=== PATIENT | male | born 1950 | race Caucasian/White ===

== ENCOUNTER 2019-01-05 19:11 | Emergency (ER) | payer MEDICARE, SELFPAY ==
[2019-01-05] VITALS (43 sets, daily range): BP systolic 72–232; BP diastolic 49–125; PULSE 46–107; RESP 12–26; TEMP 33.5–35.6; O2SAT 89–100
--- NOTE | 2019-01-05 19:20 | DI.RAD_ITS ---
SYMPTOMS/DIAGNOSIS: S/P CARDIAC ARREST, H/O LEFT LOBECTOMY PORTABLE CHEST: There are no prior comparison exams. A report from a 2006 exam is available, which noted opacification of the left hemithorax. An endotracheal tube has been inserted, which lies at the level of the clavicles. A nasogastric tube is seen projecting in the fundus of the stomach. There is opacification of the left hemithorax, which also shows calcification. There is a lead overlying the right upper lobe. A density is seen in the right hilar region, which likely represents overlying vasculature. Scoliosis as well as degenerative changes are seen. IMPRESSION: Chronic opacification of the left hemithorax. Satisfactory position of endotracheal tube. The nasogastric tube is projecting at the fundus of the stomach. The stomach does appear distended. Advancement of the tube should be considered. Probable confluence of shadows seen at the right hilar region.
--- NOTE | 2019-01-05 19:33 | W.ED.GENAD ---
Discharge Plan Disposition Patient Disposition: [facility] Condition: Critical Discharge Details Chief Complaint: CodeBlue Clinical Impression: Cardiopulmonary arrest Primary Care Provider: Clayton Arceo ED Provider: Perlita Hansen Discharge Data Discharge Date/Time-TO BE ENTERED AT DEPARTURE: 01/05/19 20:42 Medical Decision Making 1931 -- 68-year-old with history of hypothyroidism and asthma who presents in cardiopulmonary arrest. Able to obtain ROSC in field. Intubated in field. Arrived to the ED with heart rate 80s, blood pressure 158/98. O2 sat 94%. Vent settings rate of 20, tidal volume 250, O2 100, PEEP of 5. Pupils fixed and dilated. No breath sounds left chest, patient has history of left lung resection. Diminished breath sounds right chest. EKG notes a rate of 78 and left bundle branch block. No old EKG to compare. Bedside portable chest x-ray notes complete whiteout left chest consistent with left lung resection. No obvious pneumothorax. Patient had an episode of bradycardia with heart rate in the 30s and given a dose of atropine. Heart rate now 80s. Remainder vitals stable. 1944 -- discussed with [facility] critical care -accepts patient for transfer to the ED. Accepting physician Dr. Adiel Wagner. Recommends to decrease the respiratory rate and increase the tidal volume 8 to 10 mL/kg, but to monitor more closely with history of left lung resection to keep plateau pressures less than 25. 1999 -- patient now biting the tube and moving around. Push dose of 50 mg propofol given x2. Propofol drip started. Patient's blood pressure now decreased to systolic of 70s. We will give a liter IV fluids. Plan discussed with and family and she is agreeable with transfer. 2039 -- patient now appears to be spontaneously opening his eyes but with involuntary jerking movements. EMS here to take patient to [facility] at this time. BP 96/64. Medical Records Medical records reviewed: Yes I reviewed the patient's medical records. Imaging Data Radiologic Study: Radiologist's impression: XR Chest, 1 View EXAM DATE/TIME: 01/05/2019 7:22 PM CLINICAL HISTORY: 68 years old, male; Signs and symptoms; Other: S/P cardiac arrest, PT has had lt lobe lobectomy TECHNIQUE: Imaging protocol: XR of the chest, 1 view. COMPARISON: No relevant prior studies available. FINDINGS: Tubes, catheters and devices: Endotracheal tube is present with distal tip projecting approximately 5.8 cm above the allan. Enteric tube is present with radiolucent side port likely at the gastroesophageal junction. Defibrillator is in place. Lungs: Complete opacification of the left hemithorax is likely due to prior lobectomy as per provided clinical history. Rounded opacity projecting at the right hilum. Pleural space: No large right pleural effusion. Heart/Mediastinum: Unable to adequately assess due to complete opacification of the left hemithorax. Bones/joints: Serpentine curvature of the thoracic spine may be due to patient positioning. IMPRESSION: 1. Endotracheal tube with distal tip projecting 5.8 cm above the allan. 2. Enteric tube is present with the radiolucent side port likely at the expected location of the gastroesophageal junction. Consider advancing enteric tube approximately 4 cm. 3. Rounded opacity at the right hilum may be due to confluence of shadows. This can be further evaluated with dedicated PA and lateral chest radiographs. 4. Complete opacification of the left hemithorax is likely due to prior lobectomy as per provided clinical history. Lab Data Lab results reviewed: Yes I reviewed the patient's lab results. Laboratory Tests Range/Units 01/05/19 01/05/19 01/05/19 19:33 19:33 19:33 WBC (4.4-10.8) k/cumm RBC (4.50-6.00) m/cumm Hgb (13.5-17.5) g/dL Hct (40.0-50.0) % MCV (80-95) fL MCH (27.0-33.0) pg MCHC (32.0-36.0) g/dL RDW (11.8-14.1) % Plt Count (130-400) x1000/uL MPV (8.0-11.0) fL Immature Gran % Neutrophils % Band Neutrophils % % Lymphocytes % Atypical Lymphs % Monocytes % Eosinophils % Basophils % Metamyelocytes % % Absolute Neutrophils (1.2-6.7) k/cumm Absolute Lymphocytes (1.2-3.4) k/cumm Absolute Monocytes (0.11-0.7) k/cumm Absolute Eosinophils (0.0-0.7) k/cumm Absolute Basophils (0.0-0.2) k/cumm Differential Comment RBC Morphology PT (9.3-11.0) sec 10.1 INR (0.9-1.1) 1.0 APTT (21.0-31.4) sec 24.7 Sample Site pCO2 (34-47) mmHg pO2 (83-108) mmHg O2 Saturation (94-98) % ABG pH (7.35-7.45) ABG HCO3 ABG Total CO2 ABG Base Excess Oxygen Liter Flow L FiO2 % Sodium (136-145) mmol/L 140 Potassium (3.5-5.1) mmol/L 5.1 Chloride (98-107) mmol/L 104 Carbon Dioxide (21.0-32.0) mmol/L 23.4 Anion Gap (3-11) mmol/L 12.6 H BUN (7-18) mg/dL 19 H Creatinine (0.70-1.30) mg/dL 1.53 H Estimated GFR/1.73 m2 (mL/min/1.73m2) 45.22 Glucose (70-100) mg/dL 239 H Lactate (0.6-1.4) mmol/l 9.1 H Calcium (8.5-10.1) mg/dL 8.3 L Magnesium (1.8-2.4) mg/dL 2.3 Total Bilirubin (0.2-1.0) mg/dL 0.3 AST (15-37) U/L 189 H ALT (12-78) U/L 220 H Alkaline Phosphatase (46-116) U/L 94 Troponin I (0.00-0.06) ng/mL 0.03 Total Protein (6.4-8.2) g/dL 6.2 L Albumin (3.4-5.0) g/dL 2.8 L Range/Units 01/05/19 01/05/19 19:33 19:35 WBC (4.4-10.8) k/cumm 6.61 RBC (4.50-6.00) m/cumm 4.49 L Hgb (13.5-17.5) g/dL 13.8 Hct (40.0-50.0) % 43.1 MCV (80-95) fL 96.0 H MCH (27.0-33.0) pg 30.7 MCHC (32.0-36.0) g/dL 32.0 RDW (11.8-14.1) % 12.8 Plt Count (130-400) x1000/uL 167 MPV (8.0-11.0) fL 11.3 H Immature Gran % 0.0 Neutrophils % 38.0 Band Neutrophils % % 0.0 Lymphocytes % 53.0 Atypical Lymphs % 4 Monocytes % 4.0 Eosinophils % 0.0 Basophils % 0.0 Metamyelocytes % % 1.0 Absolute Neutrophils (1.2-6.7) k/cumm 2.51 Absolute Lymphocytes (1.2-3.4) k/cumm 3.77 H Absolute Monocytes (0.11-0.7) k/cumm 0.26 Absolute Eosinophils (0.0-0.7) k/cumm 0.00 Absolute Basophils (0.0-0.2) k/cumm 0.00 Differential Comment Manual differential RBC Morphology Normal PT (9.3-11.0) sec INR (0.9-1.1) APTT (21.0-31.4) sec Sample Site Right radial pCO2 (34-47) mmHg pO2 (83-108) mmHg 123 H O2 Saturation (94-98) % 95 ABG pH (7.35-7.45) 6.86 L* ABG HCO3 Not Applicable ABG Total CO2 Not Applicable ABG Base Excess Not Applicable Oxygen Liter Flow L Vent FiO2 % 100 Sodium (136-145) mmol/L Potassium (3.5-5.1) mmol/L Chloride (98-107) mmol/L Carbon Dioxide (21.0-32.0) mmol/L Anion Gap (3-11) mmol/L BUN (7-18) mg/dL Creatinine (0.70-1.30) mg/dL Estimated GFR/1.73 m2 (mL/min/1.73m2) Glucose (70-100) mg/dL Lactate (0.6-1.4) mmol/l Calcium (8.5-10.1) mg/dL Magnesium (1.8-2.4) mg/dL Total Bilirubin (0.2-1.0) mg/dL AST (15-37) U/L ALT (12-78) U/L Alkaline Phosphatase (46-116) U/L Troponin I (0.00-0.06) ng/mL Total Protein (6.4-8.2) g/dL Albumin (3.4-5.0) g/dL ECG Data Attestation: I personally reviewed and interpreted this ECG (s) as follows: Interpretation: Rate of 78, sinus. Left bundle branch block. QTc 476. QRS 136. HPI General Mode of arrival: EMS. Date/Time Provider Initiated Documentation: 01/05/19 19:20. Limitations to Documentation: altered mental status. Information obtained by: family and EMS. 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 EMS states they were called for a man who suddenly dropped down. Upon arrival, daughter was performing CPR. Patient was not breathing and pulseless. Patient was noted to be in asystole and given multiple rounds of epi. They were able to regain a pulse and he was started on a nor epi drip. He was intubated in the field. EMS states that patient had bradycardia just outside the emergency department on arrival and was given another dose of epi. states that patient has a history of stress-induced shortness of breath and states that he became stressed about something this evening and developed shortness of breath and when she was attempting to get his nebulizer machine, he suddenly dropped down to the ground. She states his daughter who is a nurse started performing CPR. Related Data Allergies Allergy/AdvReac Type Severity Reaction Status Date / Time pollen extracts Allergy Unverified 01/05/19 20:17 Review of Systems Review of Systems Unobtainable due to mental status [facility] Medical History Asthma (Chronic) Hypothyroidism (Chronic) Surgical History Status post pneumonectomy (Acute) Social History Smoking/Tobacco Use Status: Former Tobacco Use Exam Const Orientation: other (unresponsive) [facility] Head: other (skin mottled) Eyes Pupils: dilated bilaterally and fixed bilaterally Neck Neck: normal visual inspection and No submandibular swelling Lymphatic: no lymphadenopathy noted Chest Chest: normal inspection of the chest Resp Effort & Inspection: other (diminshed breath sounds R chest,no breath sounds L chest 2/2 lung resection) Cardio Rate: regular rate Rhythm: regular rhythm GI Inspection: obesity Palpation: soft, not firm, not rigid and nontender Skin General skin exam: no rashes or lesions noted Neuro General: other (unresponsive) Extrem General: no edema Other: 2+ pitting edema bilateral lower extremities. Critical Care Time Total Critical Care Time: 40 Attestation: minutes
[2019-01-05 19:40] LABS: pO2 123 mmHg (83-108); sO2 95 % (94-98)
[2019-01-05 19:42] LABS: Abs Immature Grans 0.19 k/cumm (0.0-0.09); HCT 43.1 % (40.0-50.0); HGB 13.8 g/dL (13.5-17.5); Mean Corpuscular Hemoglobin 30.7 pg (27.0-33.0); Mean Platelet Volume 11.3 fL (8.0-11.0); Platelet Count 167 x1000/uL (130-400); RBC 4.49 m/cumm (4.50-6.00); RBC Distribution Width 12.8 % (11.8-14.1); White Blood Cell Count 6.61 k/cumm (4.4-10.8)
--- NOTE | 2019-01-05 19:42 | ED.GENADUL_ITS ---
Discharge Plan Disposition Patient Disposition: [facility] Condition: Critical Discharge Details Chief Complaint: CodeBlue Clinical Impression: Cardiopulmonary arrest Primary Care Provider: Clayton Arceo ED Provider: Perlita Hansen Discharge Data Discharge Date/Time-TO BE ENTERED AT DEPARTURE: 01/05/19 20:42 Medical Decision Making 1931 -- 68-year-old with history of hypothyroidism and asthma who presents in cardiopulmonary arrest. Able to obtain ROSC in field. Intubated in field. Arrived to the ED with heart rate 80s, blood pressure 158/98. O2 sat 94%. Vent settings rate of 20, tidal volume 250, O2 100, PEEP of 5. Pupils fixed and dilated. No breath sounds left chest, patient has history of left lung resection. Diminished breath sounds right chest. EKG notes a rate of 78 and left bundle branch block. No old EKG to compare. Bedside portable chest x-ray notes complete whiteout left chest consistent with left lung resection. No obvious pneumothorax. Patient had an episode of bradycardia with heart rate in the 30s and given a dose of atropine. Heart rate now 80s. Remainder vitals stable. 1944 -- discussed with [facility] critical care -accepts patient for transfer to the ED. Accepting physician Dr. Adiel Wagner. Recommends to decrease the respiratory rate and increase the tidal volume 8 to 10 mL/kg, but to monitor more closely with history of left lung resection to keep plateau pressures less than 25. 1999 -- patient now biting the tube and moving around. Push dose of 50 mg propofol given x2. Propofol drip started. Patient's blood pressure now decreased to systolic of 70s. We will give a liter IV fluids. Plan discussed with and family and she is agreeable with transfer. 2039 -- patient now appears to be spontaneously opening his eyes but with involuntary jerking movements. EMS here to take patient to [facility] at this time. BP 96/64. Medical Records Medical records reviewed: Yes I reviewed the patient's medical records. Imaging Data Radiologic Study: Radiologist's impression: XR Chest, 1 View EXAM DATE/TIME: 01/05/2019 7:22 PM CLINICAL HISTORY: 68 years old, male; Signs and symptoms; Other: S/P cardiac arrest, PT has had lt lobe lobectomy TECHNIQUE: Imaging protocol: XR of the chest, 1 view. COMPARISON: No relevant prior studies available. FINDINGS: Tubes, catheters and devices: Endotracheal tube is present with distal tip projecting approximately 5.8 cm above the allan. Enteric tube is present with radiolucent side port likely at the gastroesophageal junction. Defibrillator is in place. Lungs: Complete opacification of the left hemithorax is likely due to prior lobectomy as per provided clinical history. Rounded opacity projecting at the right hilum. Pleural space: No large right pleural effusion. Heart/Mediastinum: Unable to adequately assess due to complete opacification of the left hemithorax. Bones/joints: Serpentine curvature of the thoracic spine may be due to patient positioning. IMPRESSION: 1. Endotracheal tube with distal tip projecting 5.8 cm above the allan. 2. Enteric tube is present with the radiolucent side port likely at the expected location of the gastroesophageal junction. Consider advancing enteric tube approximately 4 cm. 3. Rounded opacity at the right hilum may be due to confluence of shadows. This can be further evaluated with dedicated PA and lateral chest radiographs. 4. Complete opacification of the left hemithorax is likely due to prior lobectomy as per provided clinical history. Lab Data Lab results reviewed: Yes I reviewed the patient's lab results. Laboratory Tests Range/Units 01/05/19 01/05/19 01/05/19 19:33 19:33 19:33 WBC (4.4-10.8) k/cumm RBC (4.50-6.00) m/cumm Hgb (13.5-17.5) g/dL Hct (40.0-50.0) % MCV (80-95) fL MCH (27.0-33.0) pg MCHC (32.0-36.0) g/dL RDW (11.8-14.1) % Plt Count (130-400) x1000/uL MPV (8.0-11.0) fL Immature Gran % Neutrophils % Band Neutrophils % % Lymphocytes % Atypical Lymphs % Monocytes % Eosinophils % Basophils % Metamyelocytes % % Absolute Neutrophils (1.2-6.7) k/cumm Absolute Lymphocytes (1.2-3.4) k/cumm Absolute Monocytes (0.11-0.7) k/cumm Absolute Eosinophils (0.0-0.7) k/cumm Absolute Basophils (0.0-0.2) k/cumm Differential Comment RBC Morphology PT (9.3-11.0) sec 10.1 INR (0.9-1.1) 1.0 APTT (21.0-31.4) sec 24.7 Sample Site pCO2 (34-47) mmHg pO2 (83-108) mmHg O2 Saturation (94-98) % ABG pH (7.35-7.45) ABG HCO3 ABG Total CO2 ABG Base Excess Oxygen Liter Flow L FiO2 % Sodium (136-145) mmol/L 140 Potassium (3.5-5.1) mmol/L 5.1 Chloride (98-107) mmol/L 104 Carbon Dioxide (21.0-32.0) mmol/L 23.4 Anion Gap (3-11) mmol/L 12.6 H BUN (7-18) mg/dL 19 H Creatinine (0.70-1.30) mg/dL 1.53 H Estimated GFR/1.73 m2 (mL/min/1.73m2) 45.22 Glucose (70-100) mg/dL 239 H Lactate (0.6-1.4) mmol/l 9.1 H Calcium (8.5-10.1) mg/dL 8.3 L Magnesium (1.8-2.4) mg/dL 2.3 Total Bilirubin (0.2-1.0) mg/dL 0.3 AST (15-37) U/L 189 H ALT (12-78) U/L 220 H Alkaline Phosphatase (46-116) U/L 94 Troponin I (0.00-0.06) ng/mL 0.03 Total Protein (6.4-8.2) g/dL 6.2 L Albumin (3.4-5.0) g/dL 2.8 L Range/Units 01/05/19 01/05/19 19:33 19:35 WBC (4.4-10.8) k/cumm 6.61 RBC (4.50-6.00) m/cumm 4.49 L Hgb (13.5-17.5) g/dL 13.8 Hct (40.0-50.0) % 43.1 MCV (80-95) fL 96.0 H MCH (27.0-33.0) pg 30.7 MCHC (32.0-36.0) g/dL 32.0 RDW (11.8-14.1) % 12.8 Plt Count (130-400) x1000/uL 167 MPV (8.0-11.0) fL 11.3 H Immature Gran % 0.0 Neutrophils % 38.0 Band Neutrophils % % 0.0 Lymphocytes % 53.0 Atypical Lymphs % 4 Monocytes % 4.0 Eosinophils % 0.0 Basophils % 0.0 Metamyelocytes % % 1.0 Absolute Neutrophils (1.2-6.7) k/cumm 2.51 Absolute Lymphocytes (1.2-3.4) k/cumm 3.77 H Absolute Monocytes (0.11-0.7) k/cumm 0.26 Absolute Eosinophils (0.0-0.7) k/cumm 0.00 Absolute Basophils (0.0-0.2) k/cumm 0.00 Differential Comment Manual differential RBC Morphology Normal PT (9.3-11.0) sec INR (0.9-1.1) APTT (21.0-31.4) sec Sample Site Right radial pCO2 (34-47) mmHg pO2 (83-108) mmHg 123 H O2 Saturation (94-98) % 95 ABG pH (7.35-7.45) 6.86 L* ABG HCO3 Not Applicable ABG Total CO2 Not Applicable ABG Base Excess Not Applicable Oxygen Liter Flow L Vent FiO2 % 100 Sodium (136-145) mmol/L Potassium (3.5-5.1) mmol/L Chloride (98-107) mmol/L Carbon Dioxide (21.0-32.0) mmol/L Anion Gap (3-11) mmol/L BUN (7-18) mg/dL Creatinine (0.70-1.30) mg/dL Estimated GFR/1.73 m2 (mL/min/1.73m2) Glucose (70-100) mg/dL Lactate (0.6-1.4) mmol/l Calcium (8.5-10.1) mg/dL Magnesium (1.8-2.4) mg/dL Total Bilirubin (0.2-1.0) mg/dL AST (15-37) U/L ALT (12-78) U/L Alkaline Phosphatase (46-116) U/L Troponin I (0.00-0.06) ng/mL Total Protein (6.4-8.2) g/dL Albumin (3.4-5.0) g/dL ECG Data Attestation: I personally reviewed and interpreted this ECG (s) as follows: Interpretation: Rate of 78, sinus. Left bundle branch block. QTc 476. QRS 136. HPI General Mode of arrival: EMS . Date/Time Provider Initiated Documentation: 01/05/19 19:20 . Limitations to Documentation: altered mental status . Information obtained by: family and EMS . 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 EMS states they were called for a man who suddenly dropped down. Upon arrival, daughter was performing CPR. Patient was not breathing and pulseless. Patient was noted to be in asystole and given multiple rounds of epi. They were able to regain a pulse and he was started on a nor epi drip. He was intubated in the field. EMS states that patient had bradycardia just outside the emergency department on arrival and was given another dose of epi. states that patient has a history of stress-induced shortness of breath and states that he became stressed about something this evening and developed shortness of breath and when she was attempting to get his nebulizer machine, he suddenly dropped down to the ground. She states his daughter who is a nurse started performing CPR. Related Data Allergies Allergy/AdvReac Type Severity Reaction Status Date / Time pollen extracts Allergy Unverified 01/05/19 20:17 Review of Systems Review of Systems Unobtainable due to mental status [facility] Medical History Asthma (Chronic) Hypothyroidism (Chronic) Surgical History Status post pneumonectomy (Acute) Social History Smoking/Tobacco Use Status: Former Tobacco Use Exam Const Orientation: other (unresponsive) [facility] Head: other (skin mottled) Eyes Pupils: dilated bilaterally and fixed bilaterally Neck Neck: normal visual inspection and No submandibular swelling Lymphatic: no lymphadenopathy noted Chest Chest: normal inspection of the chest Resp Effort & Inspection: other (diminshed breath sounds R chest,no breath sounds L chest 2/2 lung resection) Cardio Rate: regular rate Rhythm: regular rhythm GI Inspection: obesity Palpation: soft, not firm, not rigid and nontender Skin General skin exam: no rashes or lesions noted Neuro General: other (unresponsive) Extrem General: no edema Other: 2+ pitting edema bilateral lower extremities. Critical Care Time Total Critical Care Time: 40 Attestation: minutes
[2019-01-05 19:43] LABS: Lactate-non-spesis 9.1 mmol/l (0.6-1.4)
[2019-01-05 19:44] LABS: FIO2 100 %; FIO2L VENT L; Site Right Radial; pH 6.86 (7.35-7.45)
[2019-01-05] MEDS: PROPOFOL 500 MG/50 ML BTL 37.47 MG IVPB (19:54)
[2019-01-05 20:02] LABS: ALT 220 U/L (12-78); AST 189 U/L (15-37); Albumin 2.8 g/dL (3.4-5.0); Alkaline Phosphatase 94 U/L (46-116); Anion Gap 12.6 mmol/L (3-11); BUN 19 mg/dL (7-18); Bilirubin, Total 0.3 mg/dL (0.2-1.0); CO2 23.4 mmol/L (21.0-32.0); CREATININE 1.53 mg/dL (0.70-1.30); Calcium 8.3 mg/dL (8.5-10.1); Chloride 104 mmol/L (98-107); Estimated GFR 45.22 (mL/min/1.73m2); Glucose 239 mg/dL (70-100); Magnesium 2.3 mg/dL (1.8-2.4); Potassium 5.1 mmol/L (3.5-5.1); Sodium 140 mmol/L (136-145); Total Protein 6.2 g/dL (6.4-8.2); Troponin I 0.03 ng/mL (0.00-0.06)
[2019-01-05 20:05] LABS: PTT Activated 24.7 sec (21.0-31.4); Prothrombin Time 10.1 sec (9.3-11.0)
[2019-01-05 20:06] LABS: Absolute Neutrophil Count 2.51 k/cumm (1.2-6.7); Atypical Lymphocytes % 4
[2019-01-05 20:07] LABS: Absolute Lymphocyte Count 3.77 k/cumm (1.2-3.4); Absolute Monocyte Count 0.26 k/cumm (0.11-0.7); Diff Comment Manual Differential; RBC Morphology Normal
[2019-01-05] MEDS: Normal Saline 1,000 ML 1000 ML IV (20:15)
--- NOTE | 2019-01-05 20:19 | NUR.NOTE ---
propofal started at 4 mcg/min at 1948Nursing Note: it was quickly tirated to 37 mcg/min and then to 50. pt was biting the tube and opening his eyes . he was bolused by the propafal 50 mcg x 2 and a pump bolus of 10 mcg / min
--- NOTE | 2019-01-05 20:29 | DI.VRAD_ITS ---
EXAM: XR Chest, 1 View EXAM DATE/TIME: 01/05/2019 7:22 PM CLINICAL HISTORY: 68 years old, male; Signs and symptoms; Other: S/P cardiac arrest, PT has had lt lobe lobectomy TECHNIQUE: Imaging protocol: XR of the chest, 1 view. COMPARISON: No relevant prior studies available. FINDINGS: Tubes, catheters and devices: Endotracheal tube is present with distal tip projecting approximately 5.8 cm above the allan. Enteric tube is present with radiolucent side port likely at the gastroesophageal junction. Defibrillator is in place. Lungs: Complete opacification of the left hemithorax is likely due to prior lobectomy as per provided clinical history. Rounded opacity projecting at the right hilum. Pleural space: No large right pleural effusion. Heart/Mediastinum: Unable to adequately assess due to complete opacification of the left hemithorax. Bones/joints: Serpentine curvature of the thoracic spine may be due to patient positioning. IMPRESSION: 1. Endotracheal tube with distal tip projecting 5.8 cm above the allan. 2. Enteric tube is present with the radiolucent side port likely at the expected location of the gastroesophageal junction. Consider advancing enteric tube approximately 4 cm. 3. Rounded opacity at the right hilum may be due to confluence of shadows. This can be further evaluated with dedicated PA and lateral chest radiographs. 4. Complete opacification of the left hemithorax is likely due to prior lobectomy as per provided clinical history. Dictated and Authenticated by: Danna Sherman MD. Ordering:DALJIT Bhat MD
== END 2019-01-05 20:42 | disposition short-term general hospital (02) ==
PROVIDERS: Emergency Provider Physician Assistant; PCP Family Medicine Adult Medicine
DX: I46.9 Cardiac arrest, cause unspecified (principal); J45.909 Unspecified asthma, uncomplicated; Z87.891 Personal history of nicotine dependence
CPT/HCPCS: 36415; 80053; 82805; 93005; 96361; 96365; 99291; 36600; 71045; 83605; 83735; 84484; 85025; 85610; 85730; 93010